=== PATIENT | male | born 1955 | race Caucasian/White ===

== ENCOUNTER → 2018-03-24 | Outpatient (REF) | payer OTHER ==
[2018-03-24 08:21] LABS: ALBUMIN 3.9 g/dL (3.2-5.0); ALKALINE PHOSPHATASE 106 u/l (38-126); ANION GAP 14 (6-22 (CALC)); BILIRUBIN, TOTAL 1.2 mg/dL (0.0-1.4); BUN 15 mg/dL (8-23); BUN/CREATININE RATIO 35 (12-20 (CALC)); CALCULATED LDLCHOLESTEROL 81 mg/dL (62-129 (CALC)); CARBON DIOXIDE 27 mmol/l (22-30); CHLORIDE 98 mmol/l (95-108); CHOLESTEROL HDL RATIO 3.4 (<4.4 (CALC)); CREATININE 0.4 mg/dL (0.7-1.3); GFR > 60 ML/MIN (>=60 (CALC)); GFR FOR AFR.AMER. > 60 ML/MIN (>=60 (CALC)); HDL CHOLESTEROL 50 mg/dL (>=40); POTASSIUM 4.1 mmol/l (3.5-5.1); SGOT/AST 40 u/l (19-48); SODIUM 135 mmol/l (137-146); TOTAL CHOLESTEROL 171 mg/dl (0-199); TOTAL PROTEIN 6.7 g/dL (6.3-8.2); TOTAL TRIGLYCERIDES 198 mg/dl (30-149); VLDL CHOLESTROL 40 mg/dl (4-45 (CALC))
[2018-03-24 08:48] LABS: TSH, 3RD GENERATION 4.85 uIU/mL (0.47 - 4.68)
== END | disposition home or self-care (01) | DRG 639 ==
LOC: LAB 04:47
PROVIDERS: ATTEND Family Medicine
DX: E11.65 Type 2 diabetes mellitus with hyperglycemia (principal); E89.0 Postprocedural hypothyroidism

== ENCOUNTER → 2018-03-30 | Outpatient (REF) | payer OTHER | END | disposition home or self-care (01) | DRG 639 | LOC: LABSPEC 10:21 | PROVIDERS: ATTEND Internal Medicine Endocrinology, Diabetes & Metabolism | DX: E11.65 Type 2 diabetes mellitus with hyperglycemia (principal); E89.0 Postprocedural hypothyroidism ==

== ENCOUNTER 2018-09-14 07:34 | Day surgery (SDC) | payer OTHER ==
[~2018-09-14] VITALS: Ht 185.4 cm; Wt 136.1 kg
[~2018-09-14 07:34] MED LIST: CENTRUM PO; FIASP100 UNIT/M SC; INVOKANA100 MG PO; PROAIR HFA108 MCG/AC PO; SYMBICORT1 AE1 IN; SYNTHROID125 MCG PO; TOUJEO SOL300 UNIT/M SC; VICTOZA18 MG/3 ML SC; VITAMIN D32000 UNIT PO
[2018-09-14 10:09] VITALS: BP 114/62
== END 2018-09-14 10:15 | disposition home or self-care (01) | DRG 379 ==
LOC: ENDO 07:34 → ORM 09:00 → ENDO 10:15
PROVIDERS: ATTEND Surgery
PROC: 0DB78ZX Excision of Stomach, Pylorus, Via Natural or Artificial Opening Endoscopic, Diagnostic (ICD-10-PCS; principal; 2018-09-14)
PROC: 0DJD8ZZ Inspection of Lower Intestinal Tract, Via Natural or Artificial Opening Endoscopic (ICD-10-PCS; 2018-09-14)
DX: K29.51 Unspecified chronic gastritis with bleeding (principal); B96.81 Helicobacter pylori [H. pylori] as the cause of diseases classified elsewhere; K64.8 Other hemorrhoids; E11.9 Type 2 diabetes mellitus without complications; E03.9 Hypothyroidism, unspecified; Z86.19 Personal history of other infectious and parasitic diseases

== ENCOUNTER 2019-04-25 | Emergency (ER) | payer OTHER ==
[2019-04-25] MEDS ORDERED: RYBELSUS7 MG PO (06:29)
[2019-04-25] MEDS ORDERED: FARXIGA10 MG PO (06:30)
[2019-04-25] MEDS ORDERED: CETIRIZINE10 MG PO (06:31)
[2019-04-25] MEDS ORDERED: TRESIBA FL100 UNIT/M SC (06:32)
[2019-04-25 06:57] LABS: HEMATOCRIT 38.2 % (39.0-50.0); HEMOGLOBIN 12.8 g/dl (14.0-18.0); IMMATURE GRANULOCYTES 0.7 % (0.0-5.0); MEAN CELL VOLUME 105.2 fL CALC (80.0-100.0); MEAN CORPUSCULAR HGB 35.3 pG CALC (26.0-32.0); MEAN CORPUSCULAR HGB CONC 33.5 g/L CALC (32.0-36.0); NEUT# 3.01 thou/uL (1.82-7.42); RED BLOOD COUNT 3.63 mill/uL (4.70-6.10); RED CELL DISTRI WIDTH 18.6 % (11.5-15.5)
[2019-04-25 07:08] LABS: ACT PARTIAL THROMBO TIME 28.5 SECONDS (20.0-32.5); INTERNATIONAL NORMALIZED RATIO 1.1 RATIO (0.7-1.3); PROTHROMBIN TIME 11.4 SECONDS (9.0-12.5)
[2019-04-25 07:15] LABS: ALBUMIN 3.8 g/dL (3.2-5.0); ALKALINE PHOSPHATASE 74 u/l (38-126); ANION GAP 8 (6-22 (CALC)); BILIRUBIN, TOTAL 1.3 mg/dL (0.0-1.4); BUN 11 mg/dL (8-23); BUN/CREATININE RATIO 28 (12-20 (CALC)); CARBON DIOXIDE 33 mmol/l (22-30); CHLORIDE 101 mmol/l (95-108); CREATININE 0.4 mg/dL (0.7-1.3); GFR > 60 ML/MIN (>=60 (CALC)); GFR FOR AFR.AMER. > 60 ML/MIN (>=60 (CALC)); SGOT/AST 41 u/l (19-48); SODIUM 138 mmol/l (137-146)
[2019-04-25 07:22] LABS: MYOGLOBIN 43 ng/mL (0 - 121)
[2019-04-25] MEDS ORDERED: ZPAK PO (07:44)
[2019-04-25] MEDS ORDERED: MEDDOSEPAK PO (07:44)
== END 2019-04-25 07:53 | disposition home or self-care (01) | DRG 192 ==
PROVIDERS: Emergency Medicine
DX: J43.9 Emphysema, unspecified (principal); E11.9 Type 2 diabetes mellitus without complications; Z79.4 Long term (current) use of insulin

== ENCOUNTER 2019-09-07 23:30 | Emergency (ER) | payer OTHER ==
[~2019-09-07] VITALS: Ht 185.4 cm; Wt 306.0 kg
[~2019-09-07 23:30] MED LIST changes: +CETIRIZINE10 MG PO; +FARXIGA10 MG PO; +MEDDOSEPAK PO; +RYBELSUS7 MG PO; +TRESIBA FL100 UNIT/M SC; +ZPAK PO
[2019-09-08 00:47] VITALS: BP 140/70
== END 2019-09-08 00:47 | disposition home or self-care (01) | DRG 605 ==
LOC: ED 23:30
DX: S20.211A Contusion of right front wall of thorax, initial encounter (principal); E11.9 Type 2 diabetes mellitus without complications; J43.9 Emphysema, unspecified; Y04.2XXA Assault by strike against or bumped into by another person, initial encounter; Y93.89 Activity, other specified; Y92.238 Other place in hospital as the place of occurrence of the external cause; Y99.0 Civilian activity done for income or pay; Z79.4 Long term (current) use of insulin

== ENCOUNTER 2020-05-10 | Emergency (ER) | payer OTHER ==
[~2020-05-10] MED LIST changes: +SYMBICORT 80-4.5MCG IN; -SYMBICORT1 AE1 IN
[2020-05-10 18:32] LABS: HEMATOCRIT 40.9 % (39.0-50.0); HEMOGLOBIN 13.4 g/dl (14.0-18.0); IMMATURE GRANULOCYTES 1.3 % (0.0-5.0); MEAN CELL VOLUME 106.2 fL CALC (80.0-100.0); MEAN CORPUSCULAR HGB 34.8 pG CALC (26.0-32.0); MEAN CORPUSCULAR HGB CONC 32.8 g/dL CAL (32.0-36.0); NEUT# 2.98 thou/uL (1.82-7.42); RED BLOOD COUNT 3.85 mill/uL (4.70-6.10)
[2020-05-10 18:35] LABS: URINE BILIRUBIN - DIPSTICK NEGATIVE (NEGATIVE); URINE BLOOD DIPSTICK NEGATIVE (NEGATIVE); URINE COLOR YELLOW; URINE GLUCOSE - DIPSTICK >=1000 mg/dL (NEGATIVE); URINE KETONE NEGATIVE (NEGATIVE); URINE LEUK ESTERASE NEGATIVE (NEGATIVE); URINE PH 6.5 (4.5-8.0); URINE PROTEIN - DIPSTICK 30 mg/dL (NEG-TRACE); URINE UROBILINOGEN - DIPSTICK 0.2 E.U./dL (0.2)
[2020-05-10 18:37] LABS: URINE NITRITE - DIPSTICK NEGATIVE (Negative)
[2020-05-10 18:55] LABS: ALBUMIN 3.8 g/dL (3.2-5.0); ALKALINE PHOSPHATASE 101 u/l (38-126); AMYLASE 49 u/l (30-110); ANION GAP 10 (6-22 (CALC)); BUN 11 mg/dL (8-23); BUN/CREATININE RATIO 24 (12-20 (CALC)); CARBON DIOXIDE 32 mmol/l (22-30); CHLORIDE 99 mmol/l (95-108); CREATININE 0.5 mg/dL (0.7-1.3); GFR > 60 ML/MIN (>=60 (CALC)); GFR FOR AFR.AMER. > 60 ML/MIN (>=60 (CALC)); LIPASE 148 u/l (23-300); POTASSIUM 4.4 mmol/l (3.5-5.1); SGOT/AST 45 u/l (19-48); SODIUM 138 mmol/l (137-146)
[2020-05-10] MEDS ORDERED: MAG OXIDE400 MG PO (19:14)
[2020-05-10] MEDS ORDERED: [UNRECOGNIZED DRUG - OTHER] PO (19:15)
[2020-05-10] MEDS ORDERED: FIBER ADULT GUM1 CHW PO (19:16)
[2020-05-10] MEDS ORDERED: ONDANSETRON4 MG PO (20:43)
[2020-05-10] MEDS ORDERED: TORADOL PO (20:43)
== END 2020-05-10 20:53 | disposition home or self-care (01) | DRG 694 ==
PROVIDERS: Emergency Medicine
DX: N20.0 Calculus of kidney (principal); K80.20 Calculus of gallbladder without cholecystitis without obstruction; K57.30 Diverticulosis of large intestine without perforation or abscess without bleeding; K74.60 Unspecified cirrhosis of liver; E11.9 Type 2 diabetes mellitus without complications; J43.9 Emphysema, unspecified; Z79.4 Long term (current) use of insulin